=== PATIENT | female | born 1975 | race Caucasian/White ===

== ENCOUNTER 2018-04-03 20:47 | Emergency (ER) | payer OTHER, MEDICAID ==
[~2018-04-03] VITALS: Ht 172.7 cm; Wt 96.8 kg
[2018-04-03 20:54] VITALS: BP 153/93
[2018-04-03] MEDS ORDERED: ketorolac tromethamine 15mg/ml inj. IM ONE (23:40)
[2018-04-03] MEDS ORDERED: orphenadrine citrate 60mg/2ml inj. IM ONE (23:40)
[2018-04-03] MEDS ORDERED: CYCL-1 PO (23:41)
== END 2018-04-04 00:19 | disposition home or self-care (01) ==
LOC: ER 20:48
DX: S13.4XXA Sprain of ligaments of cervical spine, initial encounter (principal); F12.90 Cannabis use, unspecified, uncomplicated; Z98.890 Other specified postprocedural states; V49.88XA Car occupant (driver) (passenger) injured in other specified transport accidents, initial encounter; Y93.89 Activity, other specified; Y92.89 Other specified places as the place of occurrence of the external cause; Y99.9 Unspecified external cause status
CPT/HCPCS: 96372; 99284; J1885; J2360